=== PATIENT | male | born 1980 | race Hispanic/Latino ===

== ENCOUNTER 2023-06-01 19:50 | Emergency (ER) | payer OTHER ==
[~2023-06-01] VITALS: Ht 182.9 cm; Wt 87.1 kg
[2023-06-01] MEDS ORDERED: SINGULAIR10 MG PO (20:59)
[2023-06-01] MEDS ORDERED: OMEPRAZOLE20 MG PO (20:59)
[2023-06-01] MEDS ORDERED: NASACORT10.8 ML NAS (21:00)
[2023-06-01] MEDS ORDERED: ALL DAY ALLERGY10 M3 PO (21:00)
[2023-06-01 21:41] VITALS: BP 119/92
== END 2023-06-01 21:43 | disposition home or self-care (01) ==
LOC: ED 19:50
DX: S42.022A Displaced fracture of shaft of left clavicle, initial encounter for closed fracture (principal); W50.0XXA Accidental hit or strike by another person, initial encounter; Y93.67 Activity, basketball; Z79.899 Other long term (current) drug therapy
CPT/HCPCS: 73000; A9270